=== PATIENT | male | born 1965 | race Caucasian/White ===

== ENCOUNTER 2020-10-02 10:21 | Inpatient (IN) | payer MEDICARE ==
[~2020-10-02] VITALS: Ht 165.1 cm; Wt 123.1 kg
[2020-10-02 13:19] LABS: BASOPHIL 0.2 % (0-2); EOSINOPHIL 0.2 % (0-5); HCT 37.3 % (42.0-52.0); HGB 12.3 g/dl (13.2-18.0); LYMPHOCYTE 23.6 % (15-48); MCH 30.8 pg (25.0-31.0); MCV 93.3 fL (78.0-100.0); MONOCYTE 7.4 % (0-12); MPV 10.9 fL (6.0-9.5); NEUTROPHIL 68.1 % (41-80); NRBC 0; PLT 142 K/uL (150-400); RDW 13.6 % (11.5-14.0)
[2020-10-02 13:20] LABS: WBC 5.5 K/uL (4.0-10.5)
[2020-10-02 13:30] LABS: INR 1.02 (0.9-1.2); PROTHROMBIN TIME 12.8 SECONDS (11.8-13.4)
[2020-10-02 13:31] LABS: PTT 34.9 SECONDS (24.4-34.7)
[2020-10-02 13:32] LABS: D-DIMER 0.93 ug/mLFEU (0.00-0.41)
[2020-10-02 13:41] LABS: LACTIC ACID 0.9 mmol/L (0.4-1.9)
[2020-10-02 13:44] LABS: ALBUMIN 2.9 g/dL (3.4-5.0); BILIRUBIN - TOTAL 0.6 mg/dL (0.2-1.0); BUN/CREAT RATIO (CALC) 13.4 RATIO; C-REACTIVE PROTEIN 12.2 mg/dL (<=0.90); CREATININE 0.67 mg/dL (0.67-1.17); GLOBULIN (CALCULATION) 3.6 g/dL; POTASSIUM 3.6 mmol/L (3.5-5.1); PRO-BNP 182 pg/mL (<125); TOTAL PROTEIN 6.5 g/dL (6.4-8.2)
--- NOTE | 2020-10-02 18:32 | NUR ---
SURGEON CHIEF USED WHILE DOING ADMISSION DATABASE
--- NOTE | 2020-10-03 02:05 | NUR ---
PT ASSESSED PER RT AND 50% VENTURI MASK APPLIED , PT O2 SATS 96%
[2020-10-03 03:44] LABS: BASOPHIL 0.2 % (0-2); EOSINOPHIL 0 % (0-5); HCT 38.5 % (42.0-52.0); HGB 12.2 g/dl (13.2-18.0); LYMPHOCYTE 10.9 % (15-48); MCH 30.2 pg (25.0-31.0); MCHC 31.7 g/dL (32.0-36.0); MCV 95.3 fL (78.0-100.0); MONOCYTE 3.2 % (0-12); MPV 10.6 fL (6.0-9.5); NRBC 0; PLT 158 K/uL (150-400); RBC 4.04 M/uL (4.70-6.00); RDW 14.1 % (11.5-14.0); WBC 6.3 K/uL (4.0-10.5)
[2020-10-03 03:49] LABS: NEUTROPHIL 84.9 % (41-80)
[2020-10-03 04:05] LABS: ALBUMIN 2.8 g/dL (3.4-5.0); BILIRUBIN - TOTAL 0.5 mg/dL (0.2-1.0); BUN/CREAT RATIO (CALC) 13.8 RATIO; CREATININE 0.65 mg/dL (0.67-1.17); GLOBULIN (CALCULATION) 4.1 g/dL; POTASSIUM 4.1 mmol/L (3.5-5.1); TOTAL PROTEIN 6.9 g/dL (6.4-8.2)
[2020-10-05 08:17] LABS: BASOPHIL 0.2 % (0-2); EOSINOPHIL 0 % (0-5); HCT 39.7 % (42.0-52.0); HGB 12.8 g/dl (13.2-18.0); MCH 30.4 pg (25.0-31.0); MCHC 32.2 g/dL (32.0-36.0); MCV 94.3 fL (78.0-100.0); MONOCYTE 8.4 % (0-12); MPV 11.3 fL (6.0-9.5); NEUTROPHIL 74.3 % (41-80); NRBC 0; PLT 211 K/uL (150-400); RBC 4.21 M/uL (4.70-6.00); RDW 13.6 % (11.5-14.0); WBC 9.5 K/uL (4.0-10.5)
[2020-10-05 08:20] LABS: LYMPHOCYTE 15.6 % (15-48)
[2020-10-05 08:40] LABS: ALBUMIN 2.7 g/dL (3.4-5.0); BILIRUBIN - TOTAL 0.4 mg/dL (0.2-1.0); BUN/CREAT RATIO (CALC) 25.4 RATIO; C-REACTIVE PROTEIN 3.1 mg/dL (<=0.90); CREATININE 0.67 mg/dL (0.67-1.17); GLOBULIN (CALCULATION) 3.8 g/dL; POTASSIUM 4.2 mmol/L (3.5-5.1); TOTAL PROTEIN 6.5 g/dL (6.4-8.2)
--- NOTE | 2020-10-07 15:22 | NUR ---
PER DR. HARTMAN PT. WILL NEED O2 AT 6 LITERS OXIMIZER, PORTABLE TANK AND HOME CONCENTRATOR. PT. WILL D/C HOME ON 10/08/20. FAXED INFORMATION TO MADELYN AT [facility] FOR DELIVERY OF O2.
--- NOTE | 2020-10-07 15:42 | NUR ---
PER DR. HARTMAN PT. WILL NEED A PRIMARY PHYSICIAN. APPT WAS MADE FOR OCTOBER 21, 2020 @ 2:[address] NIKKO TORRES.
--- NOTE | 2020-10-07 15:49 | NUR ---
PT. APPT WITH DR. NIKKO TORRES WILL BE 10/21/2020 @ 2:30 P.M.
[2020-10-07] MEDS ORDERED: VENTOLIN HFA IN18 GM INH (16:32)
[2020-10-07] MEDS ORDERED: MEDROL 4MG DOSEP4 MG PO (16:32)
[2020-10-08 06:15] LABS: BASOPHIL 0.3 % (0-2); EOSINOPHIL 0.3 % (0-5); HCT 42.5 % (42.0-52.0); HGB 13.6 g/dl (13.2-18.0); LYMPHOCYTE 20.1 % (15-48); MCH 30.4 pg (25.0-31.0); MCV 94.9 fL (78.0-100.0); MONOCYTE 8.3 % (0-12); MPV 10.7 fL (6.0-9.5); NRBC 0; PLT 221 K/uL (150-400); RBC 4.48 M/uL (4.70-6.00); RDW 13.7 % (11.5-14.0); WBC 9.5 K/uL (4.0-10.5)
[2020-10-08 06:36] LABS: BUN/CREAT RATIO (CALC) 18.6 RATIO; CREATININE 0.86 mg/dL (0.67-1.17); POTASSIUM 4.7 mmol/L (3.5-5.1)
== END 2020-10-08 14:15 | disposition home health service (06) | DRG 177 ==
LOC: FER 10:21 → FMS 15:00
PROVIDERS: Allergy & Immunology Allergy; Internal Medicine; ADMIT Internal Medicine
PROC: XW033E5 Introduction of Remdesivir Anti-infective into Peripheral Vein, Percutaneous Approach, New Technology Group 5 (ICD-10-PCS; principal; 2020-10-02)
PROC: 8E0ZXY6 Isolation (ICD-10-PCS; 2020-10-02)
DX: U07.1 COVID-19 (principal); J12.82 Pneumonia due to coronavirus disease 2019; J96.01 Acute respiratory failure with hypoxia; R04.2 Hemoptysis; Z68.42 Body mass index [BMI] 45.0-49.9, adult; G47.30 Sleep apnea, unspecified; E66.9 Obesity, unspecified; Z96.651 Presence of right artificial knee joint; Z79.899 Other long term (current) drug therapy; Z87.891 Personal history of nicotine dependence
CPT/HCPCS: 36415; 36600; 71045; 71275; 80048; 80053; 82728; 82803; 83036; 83605; 83880; 84484; 85025; 85379; 85610; 85730; 86140; 87040; 93005; 94640; 94667; 94668; 94760; 94762; C9399; J1650; J7050; J8540; Q9967; U0002